=== PATIENT | female | born 1970 | race Caucasian/White ===

== ENCOUNTER 2020-01-28 23:42 | Emergency (ER) | payer BC, SELFPAY ==
--- NOTE | 2020-01-28 23:55 | XRR_ITS ---
PROCEDURE INFORMATION: Exam: XR Right Ankle Exam date and time: 01/29/2020 12:27 AM Age: 49 years old Clinical indication: Injury or trauma; Fall; Initial encounter; Sprain or strain; Ankle; Right TECHNIQUE: Imaging protocol: XR Right ankle. Views: 3 or more views. COMPARISON: No relevant prior studies available. FINDINGS: Bones/joints: Normal. Soft tissues: Normal. XR/XR ankle RT min 3V* [id number] IMPRESSION: No acute findings.
[2020-01-29 00:04] VITALS: BP 159/91; PULSE 76; RESP 18; TEMP 38.2; O2SAT 96; BMI 36.2
--- NOTE | 2020-01-29 00:08 | W.ED.LOWEXIN ---
HPI - Extremity Injury (Lower) General: Chief Complaint: Extremity Injury, Lower Stated Complaint: r ankle pain Time Seen by Provider: 01/29/20 00:08 Source: patient Mode of arrival: ambulatory Limitations: no limitations History of Present Illness: HPI Narrative: Patient reports that she slipped and fell hurting her left great toe and her right ankle. Patient appears well. Patient is able to ambulate but has pain to the ankle. No acute distress is noted. Patient appears in mild pain. Review of Systems General: Reports: 10 or more systems reviewed and unremarkable except in HPI and below Musc: Reports: joint pain PFSH ED PFSH: Social History Smoking and tobacco status: current every day smoker Physical Exam Const: COMMON NORMALS: no apparent distress and oriented x3 GENERAL APPEARANCE: cooperative HENMT: COMMON NORMALS: normocephalic, TM's normal bilaterally and external nose normal HEAD & SCALP: normal to inspection and normocephalic NOSE: external nose normal TYMPANIC MEMBRANE: TM's normal bilaterally MOUTH: oral and palatal mucosa normal THROAT: posterior oropharynx normal Eye: GENERAL EYE: normal appearance of both eyes Neck/C-Spine: COMMON NORMALS: full ROM Lymph: LYMPHATIC: no lymphadenopathy noted Chest: COMMONS NORMALS: inspection of chest normal Resp: COMMON NORMALS: normal respiratory effort EFFORT & INSPECTION: Yes able to speak in complete sentences Cardio: COMMON NORMALS: regular rate and regular rhythm RATE: regular rate RHYTHM: regular rhythm GI: COMMON NORMALS: non-tender : COMMON NORMALS: Yes no CVA tenderness BLADDER/KIDNEY EXAM: Yes no CVA tenderness Back/Pelvis: COMMON NORMALS: no CVA tenderness and thoracic and lumbar spine normal to inspection Extremity: NARRATIVE EXTREMITY EXAM: Anterior ecchymosis is noted to the right ankle. Tenderness is noted on palpation of the proximal joint of the left great toe. Neuro: COMMON NORMALS: oriented x3 and moves all extremities Psych: COMMON NORMALS: mental status grossly normal and cooperative Skin: COMMON NORMALS: no rashes or lesions noted GENERAL SKIN EXAM: no rashes or lesions noted Course Vital Signs: Vital signs: Vital Signs Temperature 100.7 F H 01/29/20 00:04 Pulse Rate 76 01/29/20 00:04 Respiratory Rate 18 01/29/20 00:04 Blood Pressure 159/91 01/29/20 00:04 Pulse Oximetry 96 04/26/20 00:04 MDM - Extremity Injury (Lower) MDM Narrative: Medical decision making narrative: Patient comes in today for complaints of injury to the right ankle and left great toe. On exam we note some ecchymosis and swelling to the right anterior ankle. Exam of the great toe on the left foot notes some tenderness on palpation of the proximal jaw right but otherwise normal. Differential diagnosis includes but not limited to fracture, sprain, contusion. X-rays of the left foot and the right ankle demonstrated no acute fractures. Recommended conservative treatment with rest, elevate, crutches for comfort. Recommended Tylenol and ibuprofen for pain and follow-up for worsening persistent symptoms. Discharge Plan Discharge Patient Disposition: Home, Self-Care Clinical Impression: Ankle sprain and strain Injury of great toe Qualifiers: Encounter type: initial encounter Laterality: left Qualified Code(s): S99.922A - Unspecified injury of left foot, initial encounter Condition: Stable Prescriptions: No Action metoprolol succinate 100 mg Tablet Extended Release 24 Hr 100 mg PO BID RF: 0 Ecotrin Low Strength 81 mg Tablet,Delayed Release (Dr/Ec) 81 mg PO DAILY RF: 0 Prilosec OTC 20 mg Tablet,Delayed Release (Dr/Ec) 20 mg PO DAILY RF: 0 Referrals: Kaitlyn Santoyo DO [Family Provider] - Discharge Diet: Usual diet Discharge Activity: Increase activity as tolerated Patient Instructions: Ankle Sprain (ED) Activity Restrictions/Additional Instructions: Activity as tolerated, use elastic wrap for comfort and swelling. Tylenol and ibuprofen for pain. Use crutches as needed for ambulation. Follow-up with primary care in 1 week. Return to the ER for increased swelling redness or uncontrolled pain. Coding Level of Care Code ED Fish Hatchery Manager for Radha Fwevelyn Exam Comprehensive
--- NOTE | 2020-01-29 00:12 | XRR_ITS ---
PROCEDURE INFORMATION: Exam: XR Left Foot Complete Exam date and time: 01/29/2020 12:33 AM Age: 49 years old Clinical indication: Injury or trauma; Fall; Initial encounter; Sprain or strain; Toes; Left great toe TECHNIQUE: Imaging protocol: XR Left foot. Views: 3 or more views. COMPARISON: No relevant prior studies available. FINDINGS: Bones/joints: Normal. Soft tissues: Normal. XR/XR foot LT min 3V* [id number] IMPRESSION: No acute findings.
== END 2020-01-29 00:51 | disposition home or self-care (01) ==
PROVIDERS: Emergency Provider Nurse Practitioner Family; Family Provider Obstetrics & Gynecology
DX: S93.402A Sprain of unspecified ligament of left ankle, initial encounter (principal); S96.912A Strain of unspecified muscle and tendon at ankle and foot level, left foot, initial encounter; S99.922A Unspecified injury of left foot, initial encounter; W01.0XXA Fall on same level from slipping, tripping and stumbling without subsequent striking against object, initial encounter; F17.210 Nicotine dependence, cigarettes, uncomplicated
CPT/HCPCS: 12345; 73610; 73630; 99281

== ENCOUNTER 2023-04-19 05:11 | Emergency (ER) | payer BC, SELFPAY ==
[2023-04-19 05:26] VITALS: BP 160/84; PULSE 80; RESP 18; TEMP 36.7; O2SAT 98; BMI 38.2
--- NOTE | 2023-04-19 05:45 | CTR_ITS ---
PROCEDURE INFORMATION: Exam: CT Head Without Contrast Exam date and time: 04/19/2023 6:07 AM Age: 52 years old Clinical indication: Weakness, extremity; Bilateral; Patient HX: She has had unsteady gait and fuzzy feeling for 2 weeks; Additional info: Symptoms of acute stroke TECHNIQUE: Imaging protocol: Computed tomography of the head without contrast. Radiation optimization: All CT scans at this facility use at least one of these dose optimization techniques: automated exposure control; mA and/or kV adjustment per patient size (includes targeted exams where dose is matched to clinical indication); or iterative reconstruction. REPORTING DATA: Count of CT and Cardiac NM exams in prior 12 months: This patient has received 0 known CTs and 0 known cardiac nuclear medicine studies in the 12 months prior to the current study. COMPARISON: No relevant prior studies available. RADIATION DOSE METRICS: Total DLP (mGy-cm): 1005.1 FINDINGS: Brain: No acute intracranial hemorrhage or mass effect. There is mild decreased attenuation in the periventricular white matter, likely from microvascular disease. No definite acute infarct by CT. MRI would be more sensitive/specific for detection, as clinically directed. Cerebral ventricles: Ventricle size is normal for age. Paranasal sinuses: Included paranasal sinuses are essentially clear. Mastoid air cells: No significant acute finding. Bones/joints: No definite acute skull fracture. Soft tissues: No significant acute finding. CT/CT head wo con* [id number] IMPRESSION: 1. No acute intracranial hemorrhage or mass effect. 2. Changes of microvascular disease. 3. No definite acute infarct by CT, see above. 4. Other findings discussed above.
--- NOTE | 2023-04-19 05:45 | XRR_ITS ---
PROCEDURE INFORMATION: Exam: XR Chest Exam date and time: 04/19/2023 6:04 AM Age: 52 years old Clinical indication: Other: She has had unsteady gait and fuzzy feeling for 2 weeks; Additional info: Weakness TECHNIQUE: Imaging protocol: Radiologic exam of the chest. Views: 1 view. COMPARISON: No relevant prior studies available. FINDINGS: Lungs: No CHF/pulmonary edema. Visible lungs appear essentially clear. Pleural spaces: No visible pneumothorax. No definite pleural fluid. Heart/Mediastinum: Heart size is within normal limits. Bones/joints: No significant acute finding. XR/XR chest 1V portable [id number] IMPRESSION: 1. Essentially unremarkable single view chest. 2. Other findings discussed above.
--- NOTE | 2023-04-19 05:53 | ECG_ITS ---
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 Measurements Intervals [place] Rate: 77 P: 23 [place]: 182 QRS: 33 QRSD: 92 T: 35 QT: 397 QTc: 449 Interpretive Statements SINUS RHYTHM LOW QRS VOLTAGE IN PRECORDIAL LEADS [QRS DEFLECTION < 1.0 mV IN CHEST LEADS] No previous ECG available for comparison Electronically Signed On 04-19-2023 21:01:17 CDT by Sanket Cohn M.D. [email or web address]
--- NOTE | 2023-04-19 05:56 | W.ED.NEUROSD ---
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 She notes that when walking, or standing, sometimes she pitches forward or to the left. No headaches, no vomiting, no language or vision problems. No weakness. Onset (ago): week(s) (2) Location: ataxia History of same: No Severity: moderate Quality: other Relieving factors: none Exacerbating factors: none Associated symptoms: Reports nausea and weakness (Generalized); Deny chest pain, cough, diaphoresis, fevers/chills, headache(s), anorexia, seizures, short of breath, syncope, tingling, vertigo or vomiting Review of Systems Const: Denies: fever(s) or diaphoresis Eyes: Denies: change in vision ENMT: Denies: throat pain Card: Denies: chest pain or syncope Resp: Denies: dyspnea GI: Reports: nausea; Denies: abdominal pain or vomiting Neuro: Denies: headache(s) or vertigo PFSH ED PFSH: Social History Smoking and tobacco status: current every day smoker NIH stroke score NIHSS: Level Of Consciousness - 1a: 0 Level Of Consciousness Questions - 1b: Both Correct Level Of Consciousness Commands - 1c: Both Correct Best Gaze - 2: Normal Visual Nino - 3: No Visual Loss Facial Palsy - 4: Normal Motor Arm Right - 5: No Drift Motor Arm Left - 5: No Drift Motor Leg Right - 6: No Drift Limb Ataxia - 7: Absent Sensory - 8: Normal Best Language - 9: No Aphasia Dysarthia - 10: Normal Extinction And Inattention - 11: 0 Physical Exam Const: COMMON NORMALS: no acute distress and patient oriented x3 GENERAL APPEARANCE: cooperative; not ill appearing and not frail appearing HENMT: COMMON NORMALS: normocephalic, atraumatic and Normal external nose present HEAD & SCALP: normocephalic and atraumatic FACE & SINUS: normal facial exam and face symmetric NOSE: Normal external nose present Eye: COMMON NORMALS: Equal, round and reactive pupils present and EOMs intact bilaterally PUPIL: Yes Equal, round and reactive pupils present Neck/C-Spine: GENERAL: Yes trachea midline Chest: CHEST: Yes Symmetrical chest wall rise Resp: COMMON NORMALS: normal respiratory effort, No retractions, No use of accessory muscles and clear to auscultation bilaterally AUSCULTATION: clear to auscultation bilaterally Cardio: COMMON NORMALS: regular rate and regular rhythm RATE: regular rate RHYTHM: regular rhythm GI: COMMON NORMALS: Normal to inspection, nondistended, normoactive bowel sounds present Extremity: COMMON NORMALS: no pedal edema Neuro: OMID COMA SCALE: document GCS findings Silvis coma scale eye opening: Spontaneous Omid coma scale verbal response: Orientated Silvis coma scale motor response: Obey commands Silvis coma scale total score: 15 COMMON NORMALS: patient oriented x3 CRANIAL NERVES: Yes CN normal except as noted COORDINATION/BALANCE: [id number]-[id number] test normal, rhif-wv-sjin test normal and Romberg test negative SPEECH: speech normal GAIT: Yes Normal gait present SENSORY EXAM: Yes extremities (intact) MOTOR EXAM: Pronator motor function not present and Normal motor muscle tone present throughout COORDINATION: [id number]-gk-[id number] test normal and [id number]-ro-[id number] test normal Psych: COMMON NORMALS: speech normal SPEECH: Yes normal speech Skin: COMMON NORMALS: no rashes or lesions noted GENERAL SKIN EXAM: no rashes or lesions noted Course Vital Signs: Vital signs: Vital Signs Temperature 98.1 F 04/19/23 05:26 Pulse Rate 76 04/19/23 07:40 Respiratory Rate 16 04/19/23 07:40 Blood Pressure 142/88 04/19/23 07:40 Pulse Oximetry 95 04/19/23 07:40 MDM - Neuro Symptoms/Deficit Medical Decision Making 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 CT is pending. Laboratories pending. She will be checked out at shift change to the oncoming physician. Lab Data 04/19/23 05:58 04/19/23 05:58 Radiology Impressions Chest X-Ray 04/19/23 05:45 IMPRESSION: 1. Essentially unremarkable single view chest. 2. Other findings discussed above. Head CT 04/19/23 05:45 IMPRESSION: 1. No acute intracranial hemorrhage or mass effect. 2. Changes of microvascular disease. 3. No definite acute infarct by CT, see above. 4. Other findings discussed above. Laboratory Results WBC 10.9 10^3/uL (4.0-10.0) H 04/19/23 05:58 RBC 3.92 10^6/uL (4.1-5.3) L 04/19/23 05:58 Hgb 13.4 g/dL (11.5-15.3) 04/19/23 05:58 Hct 39.7 % (37.0-47.0) 04/19/23 05:58 MCV 101.3 fl (81-99) H 04/19/23 05:58 MCH 34.2 pg (28.0-34.0) H 04/19/23 05:58 MCHC 33.8 g/dL (30.0-36.0) 04/19/23 05:58 RDW 15.6 % (12.1-15.1) H 04/19/23 05:58 Plt Count 187 10^3/cmm (130-400) 04/19/23 05:58 MPV 11.4 fL (7.4-10.4) H 04/19/23 05:58 Neut % (Auto) 71.5 % 04/19/23 05:58 Lymph % (Auto) 17.7 % 04/19/23 05:58 Sequoyah % (Auto) 7.5 % 04/19/23 05:58 Eos % (Auto) 2.7 % 04/19/23 05:58 Baso % (Auto) 0.4 % 04/19/23 05:58 Neut # (Auto) 7.79 10^3/uL (1.8-7.7) H 04/19/23 05:58 Lymph # (Auto) 1.9 10^3/uL (0.8-4.8) 04/19/23 05:58 Sequoyah # (Auto) 0.8 10^3/uL (0.2-0.9) 04/19/23 05:58 Eos # (Auto) 0.3 10^3/uL (0.0-0.8) 04/19/23 05:58 Baso # (Auto) 0.0 10^3/uL (0.0-0.1) 04/19/23 05:58 Nucleated RBC % (auto) 0 % 04/19/23 05:58 Nucleated RBCs # 0.0 /100WBC 04/19/23 05:58 PT 14.10 SECONDS (12.1-14.9) 04/19/23 05:58 INR 1.06 (0.8-1.2) 04/19/23 05:58 APTT 24.1 SECONDS (23.9-36.7) 04/19/23 05:58 Sodium 137 mmol/L (136-145) 04/19/23 05:58 Potassium 4.4 mmol/L (3.5-5.1) 04/19/23 05:58 Chloride 101 mmol/L (98-107) 04/19/23 05:58 Carbon Dioxide 26 mmol/L (22-29) 04/19/23 05:58 Anion Gap 14.4 (5-19) 04/19/23 05:58 BUN 11 mg/dL (6-20) 04/19/23 05:58 Creatinine 0.8 mg/dL (0.5-0.9) 04/19/23 05:58 GFR Calculation 75.0 mL/min (90-130) L 04/19/23 05:58 Glucose 108 mg/dL (65-115) 04/19/23 05:58 Calculated Osmolality 284 mOsm/kg (285-295) L 04/19/23 05:58 Calcium 9.0 mg/dL (8.5-10.5) 04/19/23 05:58 Total Bilirubin 0.2 mg/dL (0.15-1.2) 04/19/23 05:58 AST 43 U/L (0-32) H 04/19/23 05:58 ALT 40 U/L (0-33) H 04/19/23 05:58 Alkaline Phosphatase 61 U/L (35-105) 04/19/23 05:58 Total Protein 7.4 g/dL (6.6-8.7) 04/19/23 05:58 Albumin 4.1 g/dL (3.5-5.2) 04/19/23 05:58 Globulin 3.3 g/dL (1.3-4.6) 04/19/23 05:58 Vitamin B12 332 pg/mL (232-1245) 04/19/23 05:58 Folate 4.4 ng/mL (4.8-37.3) L 04/19/23 05:58 Ser , Semi-Qnt 1.00 mIU/mL 04/19/23 05:58 Urine Color Yellow (Yellow) 04/19/23 06:03 Urine Appearance Cloudy (CLEAR) A 04/19/23 06:03 Urine pH 5 (5-7) 04/19/23 06:03 Ur Specific [place] 1.030 (1.005-1.030) 04/19/23 06:03 Urine Protein Trace (Negative) 04/19/23 06:03 Urine Glucose (UA) Norm (Normal) 04/19/23 06:03 Urine Ketones Negative (Negative) 04/19/23 06:03 Urine Blood 2+ (Negative) H 04/19/23 06:03 Urine Nitrate Negative (Negative) 04/19/23 06:03 Urine Bilirubin 1+ (Negative) H 04/19/23 06:03 Urine Urobilinogen Norm mg/dL (Negative) 04/19/23 06:03 Ur Leukocyte Esterase 2+ (Negative) H 04/19/23 06:03 Urine RBC 0-4 /hpf (0-2) H 04/19/23 06:03 Urine WBC 15-25 /hpf (0-5) H 04/19/23 06:03 Ur Squamous Epith Cells 0-4 /hpf (0-5) H 04/19/23 06:03 Amorphous Sediment Not Reportable 04/19/23 06:03 Urine Bacteria Trace /hpf (NONE) 04/19/23 06:03 Urine Opiates Screen Negative ng/mL (Negative) 04/19/23 06:03 Ur Barbiturates Screen Negative ng/mL (Negative) 04/19/23 06:03 Ur Phencyclidine Scrn Negative ng/mL (Negative) 04/19/23 06:03 Ur Amphetamines Screen Negative ng/mL (Negative) 04/19/23 06:03 U Benzodiazepines Scrn Negative ng/mL (Negative) 04/19/23 06:03 Urine Cocaine Screen Negative ng/mL (Negative) 04/19/23 06:03 U Marijuana (THC) Screen Positive ng/mL (Negative) H 04/19/23 06:03 Discharge Plan Discharge Patient Disposition: Home Clinical Impression: Folic acid deficiency, Neurologic complaint, functional Urinary tract infection Qualifiers: Urinary tract infection type: acute cystitis Hematuria presence: with hematuria Qualified Code(s): N30.01 - Acute cystitis with hematuria Condition: Stable Prescriptions: New folic acid 1 mg tablet 1,000 mcg PO DAILY Qty: 30 0RF ciprofloxacin HCl 500 mg tablet 500 mg PO Q12H Qty: 20 0RF No Action metoprolol succinate 100 mg Tablet Extended Release 24 Hr 100 mg PO BID Ecotrin Low Strength 81 mg Tablet,Delayed Release (Dr/Ec) 81 mg PO DAILY Prilosec OTC 20 mg Tablet,Delayed Release (Dr/Ec) 20 mg PO DAILY Discharge Orders: Discharge ED (Routine); Ordered 04/19/23 Ordered By: Milton Curry Patient Instructions: Folic Acid (By mouth), Urinary Tract Infection - Women Activity Restrictions/Additional Instructions: Please take all medicine as directed. Please follow-up with your primary care practitioner in the next 7 to 10 days as you may benefit from further evaluation and treatment such as a neurology referral. Return to the ER if symptoms worsen. Coding Level of Care Code ED Resource Recovery Specialist for Chg Fwd Documented by User: Milton Curry DO 04/19/23 07:25 HPI - Neuro Symptoms/Deficit General: Chief Complaint: Neuro Symptoms/Deficit Stated Complaint: Unsteady gait Time Seen by Provider: 04/19/23 05:30 [facility] ED PFSH: Social History Smoking and tobacco status: current every day smoker Physical Exam Neuro: OMID COMA SCALE: document GCS findings Silvis coma scale total score: 15 Course Vital Signs: Vital signs: Vital Signs Temperature 98.1 F 04/19/23 05:26 Pulse Rate 76 04/19/23 07:40 Respiratory Rate 16 04/19/23 07:40 Blood Pressure 142/88 04/19/23 07:40 Pulse Oximetry 95 04/19/23 07:40 MDM - Neuro Symptoms/Deficit Medical Decision Making 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 CT is pending. Laboratories pending. She will be checked out at shift change to the oncoming physician. CT of the head was essentially benign for any acute changes, chest x-ray was unremarkable, lab work revealed a low folate at 4.4 and urinalysis showed urinary tract infection with hematuria Differential Diagnosis Unlikely carpal tunnel syndrome, convulsions, delirium, subarachnoid hemorrhage, peripheral neuropathy, cerebrovascular accident, multiple sclerosis or transient cerebral ischemia Medical Records I reviewed the patient's medical records. Lab Data I reviewed the patient's lab results. 04/19/23 05:58 04/19/23 05:58 Radiology Impressions Chest X-Ray 04/19/23 05:45 IMPRESSION: 1. Essentially unremarkable single view chest. 2. Other findings discussed above. Head CT 04/19/23 05:45 IMPRESSION: 1. No acute intracranial hemorrhage or mass effect. 2. Changes of microvascular disease. 3. No definite acute infarct by CT, see above. 4. Other findings discussed above. Laboratory Results WBC 10.9 10^3/uL (4.0-10.0) H 04/19/23 05:58 RBC 3.92 10^6/uL (4.1-5.3) L 04/19/23 05:58 Hgb 13.4 g/dL (11.5-15.3) 04/19/23 05:58 Hct 39.7 % (37.0-47.0) 04/19/23 05:58 MCV 101.3 fl (81-99) H 04/19/23 05:58 MCH 34.2 pg (28.0-34.0) H 04/19/23 05:58 MCHC 33.8 g/dL (30.0-36.0) 04/19/23 05:58 RDW 15.6 % (12.1-15.1) H 04/19/23 05:58 Plt Count 187 10^3/cmm (130-400) 04/19/23 05:58 MPV 11.4 fL (7.4-10.4) H 04/19/23 05:58 Neut % (Auto) 71.5 % 04/19/23 05:58 Lymph % (Auto) 17.7 % 04/19/23 05:58 Sequoyah % (Auto) 7.5 % 04/19/23 05:58 Eos % (Auto) 2.7 % 04/19/23 05:58 Baso % (Auto) 0.4 % 04/19/23 05:58 Neut # (Auto) 7.79 10^3/uL (1.8-7.7) H 04/19/23 05:58 Lymph # (Auto) 1.9 10^3/uL (0.8-4.8) 04/19/23 05:58 [place] # (Auto) 0.8 10^3/uL (0.2-0.9) 04/19/23 05:58 Eos # (Auto) 0.3 10^3/uL (0.0-0.8) 04/19/23 05:58 Baso # (Auto) 0.0 10^3/uL (0.0-0.1) 04/19/23 05:58 Nucleated RBC % (auto) 0 % 04/19/23 05:58 Nucleated RBCs # 0.0 /100WBC 04/19/23 05:58 PT 14.10 SECONDS (12.1-14.9) 04/19/23 05:58 INR 1.06 (0.8-1.2) 04/19/23 05:58 APTT 24.1 SECONDS (23.9-36.7) 04/19/23 05:58 Sodium 137 mmol/L (136-145) 04/19/23 05:58 Potassium 4.4 mmol/L (3.5-5.1) 04/19/23 05:58 Chloride 101 mmol/L (98-107) 04/19/23 05:58 Carbon Dioxide 26 mmol/L (22-29) 04/19/23 05:58 Anion Gap 14.4 (5-19) 04/19/23 05:58 BUN 11 mg/dL (6-20) 04/19/23 05:58 Creatinine 0.8 mg/dL (0.5-0.9) 04/19/23 05:58 GFR Calculation 75.0 mL/min (90-130) L 04/19/23 05:58 Glucose 108 mg/dL (65-115) 04/19/23 05:58 Calculated Osmolality 284 mOsm/kg (285-295) L 04/19/23 05:58 Calcium 9.0 mg/dL (8.5-10.5) 04/19/23 05:58 Total Bilirubin 0.2 mg/dL (0.15-1.2) 04/19/23 05:58 AST 43 U/L (0-32) H 04/19/23 05:58 ALT 40 U/L (0-33) H 04/19/23 05:58 Alkaline Phosphatase 61 U/L (35-105) 04/19/23 05:58 Total Protein 7.4 g/dL (6.6-8.7) 04/19/23 05:58 Albumin 4.1 g/dL (3.5-5.2) 04/19/23 05:58 Globulin 3.3 g/dL (1.3-4.6) 04/19/23 05:58 Vitamin B12 332 pg/mL (232-1245) 04/19/23 05:58 Folate 4.4 ng/mL (4.8-37.3) L 04/19/23 05:58 Ser , Semi-Qnt 1.00 mIU/mL 04/19/23 05:58 Urine Color Yellow (Yellow) 04/19/23 06:03 Urine Appearance Cloudy (CLEAR) A 04/19/23 06:03 Urine pH 5 (5-7) 04/19/23 06:03 Ur Specific [place] 1.030 (1.005-1.030) 04/19/23 06:03 Urine Protein Trace (Negative) 04/19/23 06:03 Urine Glucose (UA) Norm (Normal) 04/19/23 06:03 Urine Ketones Negative (Negative) 04/19/23 06:03 Urine Blood 2+ (Negative) H 04/19/23 06:03 Urine Nitrate Negative (Negative) 04/19/23 06:03 Urine Bilirubin 1+ (Negative) H 04/19/23 06:03 Urine Urobilinogen Norm mg/dL (Negative) 04/19/23 06:03 Ur Leukocyte Esterase 2+ (Negative) H 04/19/23 06:03 Urine RBC 0-4 /hpf (0-2) H 04/19/23 06:03 Urine WBC 15-25 /hpf (0-5) H 04/19/23 06:03 Ur Squamous Epith Cells 0-4 /hpf (0-5) H 04/19/23 06:03 Amorphous Sediment Not Reportable 04/19/23 06:03 Urine Bacteria Trace /hpf (NONE) 04/19/23 06:03 Urine Opiates Screen Negative ng/mL (Negative) 04/19/23 06:03 Ur Barbiturates Screen Negative ng/mL (Negative) 04/19/23 06:03 Ur Phencyclidine Scrn Negative ng/mL (Negative) 04/19/23 06:03 Ur Amphetamines Screen Negative ng/mL (Negative) 04/19/23 06:03 U Benzodiazepines Scrn Negative ng/mL (Negative) 04/19/23 06:03 Urine Cocaine Screen Negative ng/mL (Negative) 04/19/23 06:03 U Marijuana (THC) Screen Positive ng/mL (Negative) H 04/19/23 06:03 Discharge Plan Discharge Patient Disposition: Home Clinical Impression: Folic acid deficiency, Neurologic complaint, functional Urinary tract infection Qualifiers: Urinary tract infection type: acute cystitis Hematuria presence: with hematuria Qualified Code(s): N30.01 - Acute cystitis with hematuria Condition: Stable Prescriptions: New folic acid 1 mg tablet 1,000 mcg PO DAILY Qty: 30 0RF ciprofloxacin HCl 500 mg tablet 500 mg PO Q12H Qty: 20 0RF No Action metoprolol succinate 100 mg Tablet Extended Release 24 Hr 100 mg PO BID Ecotrin Low Strength 81 mg Tablet,Delayed Release (Dr/Ec) 81 mg PO DAILY Prilosec OTC 20 mg Tablet,Delayed Release (Dr/Ec) 20 mg PO DAILY Discharge Orders: Discharge ED (Routine); Ordered 04/19/23 Ordered By: Milton Curry Patient Instructions: Folic Acid (By mouth), Urinary Tract Infection - Women Activity Restrictions/Additional Instructions: Please take all medicine as directed. Please follow-up with your primary care practitioner in the next 7 to 10 days as you may benefit from further evaluation and treatment such as a neurology referral. Return to the ER if symptoms worsen. Coding Level of Care Code ED Resource Recovery Specialist for Radha Can
[2023-04-19 06:12] LABS: Basophils % 0.4 %; Eosinophils # 0.3 10^3/uL (0.0-0.8); Eosinophils % 2.7 %; Hematocrit 39.7 % (37.0-47.0); Hemoglobin 13.4 g/dL (11.5-15.3); Lymphocytes # 1.9 10^3/uL (0.8-4.8); Lymphocytes % 17.7 %; Mean Corpuscular HGB Conc 33.8 g/dL (30.0-36.0); Mean Corpuscular Hemoglobin 34.2 pg (28.0-34.0); Mean Corpuscular Volume 101.3 fl (81-99); Mean Platelet Volume 11.4 fL (7.4-10.4); Monocytes # 0.8 10^3/uL (0.2-0.9); Monocytes % 7.5 %; Neutrophils # 7.79 10^3/uL (1.8-7.7); Neutrophils % 71.5 %; Nucleated Red Blood Cells % 0 %; Platelet Count 187 10^3/cmm (130-400); Red Blood Count 3.92 10^6/uL (4.1-5.3); Red Cell Distribution Width 15.6 % (12.1-15.1); White Blood Count 10.9 10^3/uL (4.0-10.0)
[2023-04-19 06:14] VITALS: BP 132/82; PULSE 77; RESP 17; O2SAT 95
[2023-04-19 06:19] LABS: Amphetamines Screen Urine Negative (Negative); Barbiturates Screen Urine Negative (Negative); Benzodiazepines Screen Urine Negative (Negative); Cocaine Screen Urine Negative (Negative); Opiate Screen Urine Negative (Negative); PCP Screen Urine Negative (Negative); THC Screen Urine Positive (Negative)
[2023-04-19 06:30] LABS: Alanine Aminotransferase 40 U/L (0-33); Albumin Level 4.1 g/dL (3.5-5.2); Alkaline Phosphatase 61 U/L (35-105); Anion Gap 14.4 (5-19); Aspartate Amino Transferase 43 U/L (0-32); Blood Urea Nitrogen 11 mg/dL (6-20); Carbon Dioxide 26 mmol/L (22-29); Chloride 101 mmol/L (98-107); Creatinine Clr Calc Pharmacy 97.4836; Globulin 3.3 g/dL (1.3-4.6); Glucose 108 mg/dL (65-115); Osmolality Calculated 284 mOsm/kg (285-295); Potassium 4.4 mmol/L (3.5-5.1); Sodium 137 mmol/L (136-145); Total Bilirubin 0.2 mg/dL (0.15-1.2); Total Protein 7.4 g/dL (6.6-8.7)
[2023-04-19 06:43] LABS: Blood Urine 2+ (Negative); Glucose Urine UA Norm (Normal); Ketones Urine Negative (Negative); Nitrate Urine Negative (Negative); Protein Urine Trace (Negative); Urine Appearance Cloudy (CLEAR); Urine Color Yellow (Yellow); pH Urine 5 (5-7)
[2023-04-19 06:48] LABS: INR 1.06 (0.8-1.2); Partial Thromboplastin Time 24.1 SECONDS (23.9-36.7)
[2023-04-19 06:58] LABS: Bilirubin Urine 1+ (Negative); Leukocyte Esterase Urine 2+ (Negative); Urobilinogen Urine Norm (Negative)
[2023-04-19 07:00] LABS: Add Urine Microscopic? YES
[2023-04-19 07:03] LABS: Add Urine Culture? Yes; Bacteria Urine TRACE /hpf; RBC Urine 0-4 /hpf (0-2); Squamous Epithelial Cell Urine 0-4 /hpf (0-5); WBC Urine 15-25 /hpf (0-5)
[2023-04-19 07:08] LABS: Vitamin B12 332 pg/mL (232-1245)
[2023-04-19 07:14] LABS: Folate Level 4.4 ng/mL (4.8-37.3)
[2023-04-19 07:40] VITALS: BP 142/88; PULSE 76; RESP 16; O2SAT 95
--- NOTE | 2023-04-29 12:55 | DCPLANNER ---
fiscal services manager called patient due to no primary care physician - no answer at this time.
== END 2023-04-19 07:41 | disposition home or self-care (01) ==
PROVIDERS: Emergency Provider Emergency Medicine
DX: N30.01 Acute cystitis with hematuria (principal); R29.90 Unspecified symptoms and signs involving the nervous system; E53.8 Deficiency of other specified B group vitamins; F17.210 Nicotine dependence, cigarettes, uncomplicated
CPT/HCPCS: 70450; 71045; 80053; 80306; 81001; 82607; 82746; 84702; 85025; 85610; 85730; 87077; 87086; 87186; 93005; 99285

== ENCOUNTER → 2023-05-12 15:51 | Outpatient (BNVA) | payer BC, SELFPAY | PROVIDERS: PCP Nurse Practitioner; Visit Provider Nurse Practitioner | DX: I10 Essential (primary) hypertension (principal) | CPT/HCPCS: 80053; 80061 ==

== ENCOUNTER 2023-05-19 05:55 | Outpatient (CLI) | payer BC, SELFPAY ==
--- NOTE | 2023-05-19 06:15 | US_ITS ---
WS: [id number] RIGHT UPPER QUADRANT ULTRASOUND HISTORY: R74.01 - Elevation of levels of liver transaminase levels COMPARISON: None available. Technically very difficult and limited evaluation of the right upper quadrant. Liver: 13.6 cm in length. Entire liver is very poorly visualized. Marked coarse echotexture throughou t the visualized portions. It would be difficult to exclude a mass. No bile duct dilatation is eviden t. Portal Vein: Normal hepatopetal flow with monophasic waveform. Gallbladder: Poorly visualized. Gallbladder appears slightly contracted. No stones are identified. Sm all stones would be difficult to exclude. No wall thickening or para cholecystic fluid. CBD: 0.4 cm Pancreas: Not visualized. Right kidney: 9.4 cm in length. Normal size and echogenicity. No hydronephrosis or mass. Aorta and IVC: Unremarkable abdominal aorta and IVC. No ascites. IMPRESSION: 1. Technically very difficult right upper quadrant evaluation. 2. Poorly visualized gallbladder. No obvious stones are identified. 3. Hepatic steatosis. Poorly visualized liver.
== END 2023-05-19 05:56 | disposition home or self-care (01) ==
PROVIDERS: PCP Nurse Practitioner; Visit Provider Nurse Practitioner
DX: R74.01 Elevation of levels of liver transaminase levels (principal); K76.0 Fatty (change of) liver, not elsewhere classified
CPT/HCPCS: 76705

== ENCOUNTER → 2023-10-21 10:25 | Outpatient (BNVA) | payer BC, SELFPAY | PROVIDERS: PCP Nurse Practitioner; Visit Provider Nurse Practitioner | DX: E66.9 Obesity, unspecified (principal); I10 Essential (primary) hypertension; K76.0 Fatty (change of) liver, not elsewhere classified; F41.8 Other specified anxiety disorders; Z79.899 Other long term (current) drug therapy | CPT/HCPCS: 80053; 80061; 84443; 85025 ==

== ENCOUNTER 2023-11-03 15:11 | Outpatient (CLI) | payer BC, SELFPAY ==
--- NOTE | 2023-11-03 15:16 | MM_ITS ---
WS: [id number] BILATERAL 3D TOMOSYNTHESIS DIGITAL SCREENING MAMMOGRAPHY WITH CAD CLINICAL INFORMATION: SCREEN HISTORY: Screening mammogram. No current complaints. COMPARISON: 2016 TECHNIQUE: Bilateral CC and MLO views. FINDINGS: Scattered fibroglandular densities bilaterally. No suspicious focal mass, asymmetry, calcifications, or architectural distortion. No evidence of malignancy. A few incidental punctate and lucent centered calcifications. IMPRESSION: MM/[place] [id number] BI-RADS: 2-Benign FOLLOW UP: 1 Year Follow-up Recommend return to annual screening mammography.
== END 2023-11-03 15:12 | disposition home or self-care (01) ==
LOC: RAD 15:11
PROVIDERS: PCP Nurse Practitioner; Visit Provider Nurse Practitioner
DX: Z12.31 Encounter for screening mammogram for malignant neoplasm of breast (principal); R92.323 Mammographic fibroglandular density, bilateral breasts
CPT/HCPCS: 77063; 77067

== ENCOUNTER → 2024-04-05 09:28 | Outpatient (BNVA) | payer BC, SELFPAY | PROVIDERS: PCP Nurse Practitioner; Visit Provider Nurse Practitioner | DX: F41.8 Other specified anxiety disorders (principal); I10 Essential (primary) hypertension; Z79.899 Other long term (current) drug therapy | CPT/HCPCS: 80053; 80061; 84443 ==

== ENCOUNTER 2024-04-27 06:42 | Outpatient (CLI) | payer BC, SELFPAY ==
[2024-04-27 08:16] LABS: Free T4 Free Thyroxine 0.85 ng/dL (0.82-1.77); T3 Free 2.5 PG/ML (2.0-4.4)
== END 2024-04-27 06:43 | disposition home or self-care (01) ==
PROVIDERS: PCP Nurse Practitioner; Visit Provider Nurse Practitioner
DX: E03.9 Hypothyroidism, unspecified (principal)
CPT/HCPCS: 36415; 84439; 84481

== ENCOUNTER → 2024-08-30 13:34 | Outpatient (BNVA) | payer BC, SELFPAY | PROVIDERS: PCP Nurse Practitioner; Visit Provider Nurse Practitioner | DX: I10 Essential (primary) hypertension (principal); F41.8 Other specified anxiety disorders | CPT/HCPCS: 84443 ==

== ENCOUNTER 2024-12-12 16:07 | Outpatient (CLI) | payer BC, SELFPAY | END 2024-12-12 16:08 | disposition home or self-care (01) | LOC: LAB 16:08 | PROVIDERS: PCP Nurse Practitioner; Visit Provider Nurse Practitioner | DX: E03.9 Hypothyroidism, unspecified (principal) | CPT/HCPCS: 36415; 84443 ==

== ENCOUNTER 2025-05-10 16:44 | Outpatient (CLI) | payer BC, SELFPAY ==
[2025-05-10 18:26] LABS: Alanine Aminotransferase 56 U/L (0-33); Albumin Level 4.5 g/dL (3.5-5.2); Alkaline Phosphatase 61 U/L (35-105); Aspartate Amino Transferase 56 U/L (0-32); Blood Urea Nitrogen 21 mg/dL (6-20); Calcium 9.7 mg/dL (8.5-10.5); Carbon Dioxide 21 mmol/L (22-29); Chloride 106 mmol/L (98-107); Cholesterol 214 mg/dL (0-200); Globulin 3.5 g/dL (1.3-4.6); Glucose 105 mg/dL (65-115); HDL Cholesterol 65 mg/dL (60-100); Osmolality Calculated 297 mOsm/kg (285-295); Sodium 142 mmol/L (136-145); Thyroid Stimulating Hormone 3.09 uIU/mL (0.27-4.20); Total Protein 8.0 g/dL (6.6-8.7); Triglycerides 93 mg/dL (0-150); VLDL Cholestrol Calculation 19 mg/dL (0-30)
[2025-05-10 19:47] LABS: Anion Gap 19.1 (5-19); Potassium 4.1 mmol/L (3.5-5.1)
[2025-05-10 20:01] LABS: Free T4 Free Thyroxine 1.32 ng/dL (0.82-1.77)
== END 2025-05-10 16:45 | disposition home or self-care (01) ==
PROVIDERS: PCP Nurse Practitioner; Visit Provider Nurse Practitioner
DX: I10 Essential (primary) hypertension (principal); E03.9 Hypothyroidism, unspecified; E55.9 Vitamin D deficiency, unspecified
CPT/HCPCS: 36415; 80053; 80061; 82306; 84439; 84443; 84481